=== PATIENT | male | born 1990 | race Caucasian/White ===

== ENCOUNTER 2020-09-19 17:28 | Emergency (ER) | payer SELFPAY ==
[~2020-09-19] VITALS: Ht 165.1 cm; Wt 70.0 kg
[2020-09-19 17:31] VITALS: BP 116/94
[2020-09-19] MEDS ORDERED: DEXAMETHASONE 4 MG TABLET PO ONE (18:00)
[2020-09-19] MEDS ORDERED: DEXAMETHASONE 4 MG TABLET ONE (18:01)
== END 2020-09-19 19:17 | disposition home or self-care (01) ==
LOC: ED 18:04
DX: U07.1 COVID-19 (principal); J06.9 Acute upper respiratory infection, unspecified; J02.9 Acute pharyngitis, unspecified; R51.9 Headache, unspecified
CPT/HCPCS: 71045; 99284; U0003

== ENCOUNTER 2020-09-22 14:23 | Emergency (ER) | payer SELFPAY ==
[~2020-09-22] VITALS: Ht 165.1 cm; Wt 66.5 kg
[2020-09-22 14:27] VITALS: BP 129/102
--- NOTE | 2020-09-22 15:18 | NUR ---
Patient given discharge instructions and they have confirmed that they understand the instructions. Patient ambulatory with steady gait.
== END 2020-09-22 15:20 | disposition home or self-care (01) ==
LOC: ED 15:15
DX: U07.1 COVID-19 (principal); J06.9 Acute upper respiratory infection, unspecified; B34.9 Viral infection, unspecified; J98.01 Acute bronchospasm
CPT/HCPCS: 93005; 99283

== ENCOUNTER 2020-09-25 17:53 | Emergency (ER) | payer SELFPAY ==
[~2020-09-25] VITALS: Ht 165.1 cm; Wt 68.4 kg
--- NOTE | 2020-09-25 18:35 | NUR ---
"IM HAVING TROUBLE BREATHING AND MY CHEST FEELS TIGHT" X 2 DAYS PT STATES HES FEELING GENERALLY UNWELL. HE GETS SHORT OF BREATH UPON EXCERTION AND FEELS LIKE THERE ARE MARSHMELLOWS IN HIS THROAT. PT ALSO REPORT RASH THAT STARTED ON HIS HANDS AND STARTED TO SHOW UP ON TRUNK. PT ATTACHED TO ALL MONITORS. VSS. ESPARZA. AWAITING ORDER
--- NOTE | 2020-09-25 18:49 | NUR ---
report to gale singh.
[2020-09-25] MEDS ORDERED: predniSONE 50MG TABLET PO/NG ONE (19:00)
[2020-09-25 19:07] VITALS: BP 117/74
== END 2020-09-25 19:18 | disposition home or self-care (01) ==
LOC: ED 18:23
DX: U07.1 COVID-19 (principal); J98.01 Acute bronchospasm; R06.02 Shortness of breath; R05 Cough; R07.89 Other chest pain
CPT/HCPCS: 93005; 99283; J7512